=== PATIENT | female | born 1990 | race American Indian/Alaskan Native ===

== ENCOUNTER 2017-04-29 01:47 | Emergency (ER) | payer SELFPAY ==
[2017-04-29 02:17] VITALS: BP 108/72
[2017-04-29 03:09] LABS: Basophils % (Auto) 0.5 % (0.0-1.8); Eosinophils % (Auto) 1.1 % (0.0-4.3); Hematocrit 33.5 % (30.3-42.9); Hemoglobin 11.7 gm/dl (10.1-14.3); Mean Corpuscular HGB Conc 35 % (30-34); Mean Corpuscular Hemoglobin 31 pg (28-32); Mean Corpuscular Volume 89 fl (79-97); Platelet Count 136 K/mm3 (140-440); Red Blood Count 3.75 M/mm3 (3.65-5.03); Red Cell Distribution Width 12.2 % (13.2-15.2); White Blood Count 4.3 K/mm3 (4.5-11.0)
[2017-04-29 03:15] LABS: Alanine Aminotransferase 285 units/L (7-56); Albumin/Globulin Ratio 1.4 %; Alkaline Phosphatase 82 units/L (35-129); Anion Gap 16 mmol/L; Blood Urea Nitrogen 13 mg/dL (7-17); Calcium 8.6 mg/dL (8.4-10.2); Carbon Dioxide 24 mmol/L (22-30); Chloride 101.9 mmol/L (98-107); Glucose 84 mg/dL (65-100); Lipase 25 units/L (13-60); Potassium 3.7 mmol/L (3.6-5.0); Sodium 138 mmol/L (137-145); Total Protein 6.9 g/dL (6.3-8.2)
[2017-04-29 09:10] LABS: Bilirubin,Urine NEG (Negative); Blood,Urine NEG (Negative); Ketones,Urine 20 mg/dL (Negative); Leukocyte Esterase,Urine NEG (Negative); Mucus,Urine 3+ /HPF; Nitrite,Urine NEG (Negative); Protein,Urine <15 mg/dL mg/dL (Negative)
--- NOTE | 2017-04-30 09:47 | ED Elopement Review ---
ED Pt Elopement review - Results review Lab results: Laboratory Tests 04/29/17 04/29/17 04/29/17 02:35 02:35 02:35 WBC 4.3 L RBC 3.75 Hgb 11.7 Hct 33.5 MCV 89 MCH 31 MCHC 35 H RDW 12.2 L Plt Count 136 L Lymph % (Auto) 28.8 [place] % (Auto) 5.0 Eos % (Auto) 1.1 Baso % (Auto) 0.5 Lymph # 1.2 [place] # 0.2 Eos # 0.0 Baso # 0.0 Seg Neutrophils % 64.6 Seg Neutrophils # 2.8 Sodium 138 Potassium 3.7 Chloride 101.9 Carbon Dioxide 24 Anion Gap 16 BUN 13 Creatinine 0.5 L Estimated GFR > 60 BUN/Creatinine Ratio 26.00 Glucose 84 Calcium 8.6 Total Bilirubin 3.10 H AST 215 H ALT 285 H Alkaline Phosphatase 82 Total Protein 6.9 Albumin 4.0 Albumin/Globulin Ratio 1.4 Lipase 25 HCG, Qual Negative Urine Color Urine Turbidity Urine pH Ur Specific [place] Urine Protein Urine Glucose (UA) Urine Ketones Urine Blood Urine Nitrite Urine Bilirubin Urine Urobilinogen Ur Leukocyte Esterase Urine WBC (Auto) Urine RBC (Auto) U Epithel Cells (Auto) Urine Mucus 04/29/17 07:15 WBC RBC Hgb Hct MCV MCH MCHC RDW Plt Count Lymph % (Auto) [place] % (Auto) Eos % (Auto) Baso % (Auto) Lymph # [place] # Eos # Baso # Seg Neutrophils % Seg Neutrophils # Sodium Potassium Chloride Carbon Dioxide Anion Gap BUN Creatinine Estimated GFR BUN/Creatinine Ratio Glucose Calcium Total Bilirubin AST ALT Alkaline Phosphatase Total Protein Albumin Albumin/Globulin Ratio Lipase HCG, Qual Urine Color [place] Urine Turbidity Clear Urine pH 6.0 Ur Specific [place] 1.026 Urine Protein <15 mg/dl Urine Glucose (UA) Neg Urine Ketones 20 Urine Blood Neg Urine Nitrite Neg Urine Bilirubin Neg Urine Urobilinogen 4.0 Ur Leukocyte Esterase Neg Urine WBC (Auto) 1.0 Urine RBC (Auto) 2.0 U Epithel Cells (Auto) 1.0 Urine Mucus 3+ - Call Back decision Pt Call Back Decision: Call pt to return to ED ARTI (Elevated LFTs)
== END 2017-04-29 02:50 | disposition left against medical advice (07) ==
LOC: ED 01:47
DX: R10.9 Unspecified abdominal pain (principal); Z53.21 Procedure and treatment not carried out due to patient leaving prior to being seen by health care provider
CPT/HCPCS: 36415; 80053; 81001; 83690; 84703; 85025